=== PATIENT | male | born 1975 | race Two or more races ===

== ENCOUNTER 2020-06-05 08:39 | Emergency (ER) | payer SELFPAY ==
[2020-06-05 08:55] VITALS: BP 111/71; PULSE 72; TEMP 98.3; BMI 29.7
== END 2020-06-05 09:26 | disposition home or self-care (01) ==
LOC: JER 08:39
DX: M25.511 Pain in right shoulder (principal); M54.2 Cervicalgia
CPT/HCPCS: 99283-25